=== PATIENT | male | born 1995 | race Caucasian/White ===

== ENCOUNTER 2020-06-26 21:45 | Emergency (ER) | payer SELFPAY ==
[~2020-06-26] VITALS: Ht 172.7 cm; Wt 62.8 kg
[2020-06-26] MEDS: KETOROLAC 15 MG/ML VIAL. IVP ONE (22:15)
[2020-06-26] MEDS: IV NORMAL SALINE 1,000ML 1,000 ML IV ONE (22:15)
--- NOTE | 2020-06-26 22:16 | PHYS DOC ---
Past History Past Medical History: No Pertinent History Additional Past Surgical Histo: [place] teeth extraction, hand surgery Additional Smoking Information: 1/2 pack/day x5-6 years Alcohol Use: Occasionally General Adult EDM: Chief Complaint: SHORTNESS OF BREATH HPI: HPI: Patient is a 25-year-old male coming in for fever, cough is nonproductive, right-sided chest pain and shortness of breath. Patient says he has been having upper respiratory tract symptoms and fevers for the past few days. Says he gets an upper respiratory infection around this time every year and has had yellow drainage and fevers with a T-max of 101. He was skateboarding for 5 days ago and fell mostly onto his right side which exacerbated the pain. Has abrasions to bilateral forearms has had rib fractures in the past and says he does not feel like his ribs are fractured. No vomiting or diarrhea. Initial observation patient is tachycardic in the 140s, states he drinks a lot of caffeine daily, states he tries to get adequate water intake. Denies any changes in urination or decreased urine. Patient later admitted to using IV morphine for pain after the fall. Has a history of IV drug use. Denies any family history of cancer. Review of Systems: Review of Systems: Constitutional: Fevers Eyes: Denies change in visual acuity HENT: Nasal congestion or rhinorrhea, no sore throat Respiratory: Cough and shortness of breath Cardiovascular: Denies chest pain or edema GI: Denies abdominal pain, nausea, vomiting, bloody stools or diarrhea : Denies dysuria Musculoskeletal: Denies back pain or joint pain Integument: Denies rash Neurologic: Denies headache, focal weakness or sensory changes Endocrine: Denies polyuria or polydipsia Lymphatic: Denies swollen glands Psychiatric: Denies depression or anxiety Current Medications: Current Meds: Current Medications Medications (Trade) Dose Ordered Sig/Melanie Start Time Stop Time Status Last Admin Dose Admin Ketorolac Tromethamine (Toradol 15mg Vial) 15 mg 1X ONCE 06/26/20 22:15 06/26/20 22:16 UNV Sodium Chloride 1,000 ml @ 1,000 mls/hr 1X ONCE 06/26/20 22:15 06/26/20 23:14 UNV Allergies: Allergies: Allergies Coded Allergies Type Severity Reaction Last Updated Verified No Known Drug Allergies 06/26/20 No Physical Exam: PE: Constitutional: Well developed, well nourished, no acute distress, non-toxic appearance. [] HENT: Normocephalic, atraumatic, bilateral external ears normal, oropharynx moist, no oral exudates, nose normal. [] Eyes: PERRLA, EOMI, conjunctiva normal, no discharge. [] Neck: Normal range of motion, no tenderness, supple, no stridor. [] Cardiovascular tachycardic, regular rhythm, no murmurs, chest wall tenderness Lungs & Thorax: Bilateral breath sounds clear to auscultation [] Abdomen: Bowel sounds normal, soft, no tenderness, no masses, no pulsatile masses. [] Skin: Warm, dry, no erythema, no rash. [] Back: No tenderness, no CVA tenderness. [] Extremities: No tenderness, no cyanosis, no clubbing, ROM intact, no edema. [] Neurologic: Alert and oriented X 3, normal motor function, normal sensory function, no focal deficits noted. [] Psychologic: Affect normal, judgement normal, mood normal. [] Current Patient Data: Vital Signs: Vital Signs Date Time Temp Pulse Resp B/P (MAP) Pulse Ox O2 Delivery O2 Flow Rate FiO2 06/26/20 22:02 100.3 147 18 100/62 (75) 97 Room Air EKG: EKG: Sinus tachycardia, borderline left axis deviation, heart rate 145, no ectopy, normal intervals, no ST elevation or depression. [] Radiology/Procedures: Radiology/Procedures: CT ANGIO CHEST W ABD PEL W/ Clinical Indication: Pain, dyspnea, fever COMPARISON: None TECHNIQUE: Multiple contiguous axial images were obtained throughout the chest, abdomen, and pelvis with the use of IV contrast. Axial images were reformatted into coronal and sagittal planes. MIP reconstructions were obtained 100 mL Isovue-370 was administered. One or more of the following dose reduction techniques were utilized: Automated exposure control (AEC), Adjustment of mA and/or kV according to patient size, Use of iterative reconstruction technique such as ASiR, CT scan done according to ALARA and image gently/image wisely. Findings: The thyroid is symmetric. Mediastinal and bilateral hilar lymphadenopathy. No evidence of pulmonary thromboembolic disease. The thoracic aorta diameter is normal. The cardiac size is normal. There is no pericardial effusion. The central airways are patent. Multifocal bilateral cavitary pulmonary nodules and masses, for example left apical cavitary mass measuring 3.1 cm (series 4 image 16). Bilateral lower lobe ground glass opacities . Small right and trace left pleural effusions. There is no pneumothorax. Markedly enlarged spleen measures 20.5 cm craniocaudad. The liver, gallbladder, pancreas, and adrenal glands are unremarkable. The kidneys are unremarkable. There is no significant mesenteric or retroperitoneal adenopathy identified. There is no evidence of free intraperitoneal fluid or pneumoperitoneum. Visualized portions of the bowel are grossly unremarkable. Bladder is unremarkable. There is no significant pelvic ascites. No significant iliac or inguinal adenopathy is identified. No acute osseous abnormality. IMPRESSION: 1. Multifocal bilateral pulmonary nodules and masses, some of which demonstrate cavitation. Bilateral lower lobe groundglass opacities and consolidations. Differential considerations would include septic emboli, necrotizing infection including atypical/fungal infections such as tuberculosis or histoplasmosis, autoimmune/vasculitis such as granulomatosis with polyangiitis, sarcoidosis, and cavitary metastases. If the patient is immunocompromised, opportunistic infection should also be considered. 2. Mediastinal and bilateral hilar lymphadenopathy. No abdominal lymphadenopathy. 3. Marked splenomegaly. Exam: Chest one view INDICATION: Injury from fall on right side TECHNIQUE: Frontal view of the chest Comparisons: None FINDINGS: The cardiomediastinal silhouette and pulmonary vessels are within normal limits. Patchy airspace disease at the right lateral lung base. No pleural effusion. IMPRESSION: Patchy bibasilar airspace disease greater at the right lateral lung. Recommend CT for further evaluation. [] Heart Score: Risk Factors: Risk Factors: DM, Current or recent (<one month) smoker, HTN, HLP, family history of CAD, obesity. Risk Scores: Score 0 - 3: 2.5% MACE over next 6 weeks - Discharge Home Score 4 - 6: 20.3% MACE over next 6 weeks - Admit for Clinical Observation Score 7 - 10: 72.7% MACE over next 6 weeks - Early Invasive Strategies Course & Med Decision Making: Course & Med Decision Making Pertinent Labs and Imaging studies reviewed. (See chart for details) Discussed with radiologist, likely infectious etiology, less likely malignancy. Patient meeting criteria for sepsis, borderline blood pressures but reduced to 80s over 40s but responded well to fluids. Judicious fluid resuscitation due to not wanting to overcorrect sodium too quickly. Patient denies any history of cancer in himself or family, only IV drug use. Given broad-spectrum antibiotics to cover pulmonary infection such as azithromycin, vancomycin, Zosyn. Transfer to [facility], discussed with Dr. Pedraza overnight due to acuity of patient's condition. Concern for DIC due to patient's elevated dimer, low platelets, low hemoglobin. Fibrinogen lab pending at time of transfer. [] Dragon Disclaimer: Dragon Disclaimer: This electronic medical record was generated, in whole or in part, using a voice recognition dictation system. Departure Departure: Impression: Primary Impression: Severe sepsis Disposition: 02 DC/TRF OTHER SHORT TERM HOS Condition: CRITICAL Critical Care Note Total Time (mins): 90 Comments Critical care time attributed to assessing patient, discussing with consultants, reviewing lab work and radiology, ordering further studies, looking to transfer patient separate from other billable procedures. KORIN COLLINS MD Jun 26, 2020 22:16
[2020-06-26 22:58] LABS: BASO # 0.1 x10^3/uL (0.0-0.2); BASO % 1 % (0-3); EOS % 0 % (0-3); HEMATOCRIT 31.1 % (39.0-53.0); HEMOGLOBIN 10.3 g/dL (13.0-17.5); LYMPH # 0.6 x10^3/uL (1.0-4.8); LYMPH % 4 % (24-48); MEAN CORPUSCULAR HEMOGLOBIN 25 pg (25-35); MEAN CORPUSCULAR HGB CONC 33 g/dL (31-37); MEAN CORPUSCULAR VOLUME 77 fL (79-100); MONO # 0.4 x10^3/uL (0.0-1.1); MONO % 3 % (0-9); NEUT # 13.4 x10^3uL (1.8-7.7); NEUT % 92 % (31-73); PLATELET COUNT 67 x10^3/uL (140-400); RED BLOOD COUNT 4.05 x10^6/uL (4.30-5.70); RED CELL DISTRIBUTION WIDTH 17.8 % (11.5-14.5); WHITE BLOOD COUNT 14.6 x10^3/uL (4.0-11.0)
[2020-06-26 23:13] LABS: ALBUMIN 1.8 g/dL (3.4-5.0); ALBUMIN/GLOBULIN RATIO 0.3 (1.0-1.7); CALCIUM 7.9 mg/dL (8.5-10.1); CREATININE 1.3 mg/dL (0.7-1.3); GFR 67.3; POTASSIUM 3.8 mmol/L (3.5-5.1); TOTAL PROTEIN 7.6 g/dL (6.4-8.2)
[2020-06-26] MEDS ORDERED: CONTRAST GIVEN. MC PRN (23:15)
[2020-06-26 23:16] LABS: % BANDS 14 % (0-9); % LYMPHS 6 % (24-48); % MONOS 2 % (0-10); % SEGS 78 % (35-66)
[2020-06-26 23:17] LABS: ANISOCYTOSIS SLIGHT; MICROCYTOSIS SLIGHT; PLT ESTIMATE DECREASED (ADEQUATE)
[2020-06-26] MEDS: IOHEXOL 350 MG/ML 100 ML VIAL. IV ONE (23:27)
--- NOTE | 2020-06-26 23:28 | EKG ---
[address] [address] Test Date: 2020-06-26 Test Time: 22:03:31 Pat Name: ANSELMO EUBANKS Department: Room: Gender: M Clinical Nursing Professor: : 1995 Requested By: KORIN COLLINS Order Number: [id number] Reading MD: Measurements Intervals [place] Rate: 145 P: 34 ID: [id number] QRS: -9 QRSD: 94 T: 56 QT: 274 QTc: 428 Interpretive Statements SINUS TACHYCARDIA LEFTWARD AXIS OTHERWISE NORMAL ECG RI6.02 No previous ECG available for comparison
[2020-06-26] MEDS: IV RINGERS SOLUTION,LACTATED 1,000 ML IV ONE (23:50)
--- NOTE | 2020-06-27 00:24 | RAD ---
CT ANGIO CHEST W ABD PEL W/ Clinical Indication: Pain, dyspnea, fever COMPARISON: None TECHNIQUE: Multiple contiguous axial images were obtained throughout the chest, abdomen, and pelvis with the use of IV contrast. Axial images were reformatted into coronal and sagittal planes. MIP reconstructions were obtained 100 mL Isovue-370 was administered. One or more of the following dose reduction techniques were utilized: Automated exposure control (AEC), Adjustment of mA and/or kV according to patient size, Use of iterative reconstruction technique such as ASiR, CT scan done according to ALARA and image gently/image wisely. Findings: The thyroid is symmetric. Mediastinal and bilateral hilar lymphadenopathy. No evidence of pulmonary thromboembolic disease. The thoracic aorta diameter is normal. The cardiac size is normal. There is no pericardial effusion. The central airways are patent. Multifocal bilateral cavitary pulmonary nodules and masses, for example left apical cavitary mass measuring 3.1 cm (series 4 image 16). Bilateral lower lobe ground glass opacities . Small right and trace left pleural effusions. There is no pneumothorax. Markedly enlarged spleen measures 20.5 cm craniocaudad. The liver, gallbladder, pancreas, and adrenal glands are unremarkable. The kidneys are unremarkable. There is no significant mesenteric or retroperitoneal adenopathy identified. There is no evidence of free intraperitoneal fluid or pneumoperitoneum. Visualized portions of the bowel are grossly unremarkable. Bladder is unremarkable. There is no significant pelvic ascites. No significant iliac or inguinal adenopathy is identified. No acute osseous abnormality. IMPRESSION: 1. Multifocal bilateral pulmonary nodules and masses, some of which demonstrate cavitation. Bilateral lower lobe groundglass opacities and consolidations. Differential considerations would include septic emboli, necrotizing infection including atypical/fungal infections such as tuberculosis or histoplasmosis, autoimmune/vasculitis such as granulomatosis with polyangiitis, sarcoidosis, and cavitary metastases. If the patient is immunocompromised, opportunistic infection should also be considered. 2. Mediastinal and bilateral hilar lymphadenopathy. No abdominal lymphadenopathy. 3. Marked splenomegaly. FOR INTERNAL CODING PURPOSES Critical result: Findings discussed with KORIN COLLINS at 06/27/2020 12:05 AM. RESULT CODE: (C) Electronically signed by: Rick Nuñez MD (06/27/2020 12:21 AM) [facility]
[2020-06-27] MEDS ORDERED: IV NORMAL SALINE 500ML 500 ML ONE ×2 (00:47→01:03)
[2020-06-27] MEDS ORDERED: IV NORMAL SALINE 250ML 250 ML ONE (01:02)
[2020-06-27] MEDS ORDERED: VANCOMYCIN 1 GM VIAL. ONE (01:03)
[2020-06-27] MEDS ORDERED: PIPERACILLIN/TAZOBACTAM 3.375 GM VIAL IV ONE (01:03)
[2020-06-27] MEDS ORDERED: AZITHROMYCIN 500 MG VIAL. IV ONE (01:03)
[2020-06-27] MEDS ORDERED: IV NORMAL SALINE 50ML 50 ML ONE (01:03)
[2020-06-27] MEDS: IV NORMAL SALINE 1,000ML 1,000 ML IV ONE ×2 (01:15→03:15)
[2020-06-27] MEDS: PIPERACILLIN/TAZOBACTAM 3.375 GM in IV NORMAL SALINE 50ML 50 ML IV ONE (01:27)
[2020-06-27] MEDS: VANCOMYCIN 1.5 GM in IV NORMAL SALINE 500ML 500 ML IV ONE (01:33)
[2020-06-27] MEDS: AZITHROMYCIN 500 MG in IV NORMAL SALINE 250ML 250 ML IV ONE (01:33)
[2020-06-27 01:34] VITALS: BP 89/46
[2020-06-27] MEDS ORDERED: IV NORMAL SALINE 1,000ML 1,000 ML IV ONE (03:00)
[2020-06-27 03:25] LABS: BASO % 0 % (0-3); EOS # 0.1 x10^3/uL (0.0-0.7); EOS % 1 % (0-3); HEMATOCRIT 24.7 % (39.0-53.0); HEMOGLOBIN 8.1 g/dL (13.0-17.5); LYMPH # 0.4 x10^3/uL (1.0-4.8); LYMPH % 6 % (24-48); MEAN CORPUSCULAR HEMOGLOBIN 26 pg (25-35); MEAN CORPUSCULAR HGB CONC 33 g/dL (31-37); MEAN CORPUSCULAR VOLUME 78 fL (79-100); MONO # 0.4 x10^3/uL (0.0-1.1); MONO % 5 % (0-9); NEUT # 6.2 x10^3uL (1.8-7.7); NEUT % 87 % (31-73); PLATELET COUNT 45 x10^3/uL (140-400); RED BLOOD COUNT 3.18 x10^6/uL (4.30-5.70); WHITE BLOOD COUNT 7.1 x10^3/uL (4.0-11.0)
[2020-06-27 03:34] LABS: BILIRUBIN,URINE SMALL (NEG); CLARITY,URINE CLEAR; COLOR,URINE YELLOW; GLUCOSE,URINE NEG (NEG)
[2020-06-27 03:35] LABS: BACTERIA,URINE 0 /HPF (0-FEW); NITRITE,URINE NEG (NEG); RBC,URINE 0 /HPF (0-2); SQUAMOUS EPITHELIAL CELL,UR OCC /LPF
[2020-06-27 03:40] LABS: ALBUMIN 1.3 g/dL (3.4-5.0); ALBUMIN/GLOBULIN RATIO 0.3 (1.0-1.7); CALCIUM 6.6 mg/dL (8.5-10.1); POTASSIUM 3.6 mmol/L (3.5-5.1); TOTAL BILIRUBIN 2.7 mg/dL (0.2-1.0); TOTAL PROTEIN 5.3 g/dL (6.4-8.2)
== END 2020-06-27 03:47 | disposition short-term general hospital (02) ==
LOC: ER 21:45
DX: R07.89 Other chest pain (principal); R65.20 Severe sepsis without septic shock; F17.200 Nicotine dependence, unspecified, uncomplicated
CPT/HCPCS: 36415; 71045; 71275; 74177; 80053; 81001; 83605; 83690; 83930; 84484; 85007; 85025; 85379; 85610; 86703; 87040; 87205; 93005; 96361; 96365; 96366; 96372; 96375; 96376; 99291; 99292; J0456; J1885; J2543; J3010; J3370; J7030; J7040; J7050; J7120; Q9967

== ENCOUNTER 2020-07-07 13:03 | Emergency (ER) | payer BC ==
[~2020-07-07] VITALS: Ht 172.7 cm; Wt 59.1 kg
[2020-07-07] MEDS ORDERED: KETOROLAC 30 MG/ML VIAL. IVP ONE (13:45)
[2020-07-07] MEDS ORDERED: DAPTOmycin 350 MG in IV NORMAL SALINE 50ML 50 ML IV SCH (14:00)
[2020-07-07] MEDS ORDERED: IV NORMAL SALINE 1,000ML 1,000 ML IV ONE ×2 (14:00)
--- NOTE | 2020-07-07 14:27 | RAD ---
EXAM: XR CHEST 1V 07/07/2020 2:04 PM CLINICAL INDICATION: Shortness of breath, endocarditis. COMPARISON: Chest radiograph 06/26/[address] chest 06/26/2020 TECHNIQUE: AP view of the chest FINDINGS: The heart is mostly obscured. There are worsened bilateral opacities and an increased, mod erate left and small right pleural effusion. No pneumothorax. No acute osseous abnormality. IMPRESSION: Worsening bilateral airspace disease and pleural effusions. Electronically signed by: Abi Lopez MD (07/07/2020 2:25 PM) [id number]
[2020-07-07 14:29] LABS: BASO % 0 % (0-3); EOS % 0 % (0-3); HEMATOCRIT 27.6 % (39.0-53.0); HEMOGLOBIN 8.6 g/dL (13.0-17.5); LYMPH % 11 % (24-48); MEAN CORPUSCULAR HEMOGLOBIN 26 pg (25-35); MEAN CORPUSCULAR HGB CONC 31 g/dL (31-37); MEAN CORPUSCULAR VOLUME 82 fL (79-100); MONO # 0.4 x10^3/uL (0.0-1.1); MONO % 5 % (0-9); NEUT # 7.4 x10^3uL (1.8-7.7); NEUT % 83 % (31-73); PLATELET COUNT 228 x10^3/uL (140-400); RED BLOOD COUNT 3.35 x10^6/uL (4.30-5.70); RED CELL DISTRIBUTION WIDTH 20.4 % (11.5-14.5); WHITE BLOOD COUNT 8.9 x10^3/uL (4.0-11.0)
[2020-07-07 14:37] LABS: CALCIUM 8.2 mg/dL (8.5-10.1); CREATININE 0.6 mg/dL (0.7-1.3); GFR 164.2; POTASSIUM 4.2 mmol/L (3.5-5.1)
[2020-07-07 14:41] LABS: LACTATE DEHYDROGENASE 265 U/L (85-227); LIPASE 49 U/L (73-393)
[2020-07-07] MEDS ORDERED: MORPHINE SULFATE 4 MG/ML DISP.SYRIN. ONE (14:43)
[2020-07-07] MEDS ORDERED: MORPHINE SULFATE 4 MG/ML DISP.SYRIN. IV ONE (14:45)
[2020-07-07 14:53] LABS: ALBUMIN 1.4 g/dL (3.4-5.0); ALBUMIN/GLOBULIN RATIO 0.2 (1.0-1.7); TOTAL BILIRUBIN 0.9 mg/dL (0.2-1.0); TOTAL PROTEIN 7.7 g/dL (6.4-8.2)
--- NOTE | 2020-07-07 15:07 | PHYS DOC ---
Past History Past Medical History: Other Additional Past Medical Histor: DRUG ABUSE - INTRAVENOUS AND ORALLY Past Surgical History: Other Additional Past Surgical Histo: [place] teeth extraction, hand surgery Alcohol Use: Occasionally Adult General Chief Complaint Chief Complaint: MULTIPLE COMPLAINTS HPI HPI Patient is a 25-year-old male presents to the emergency department stating he went to the infusion clinic here at [facility] for his daptomycin infusion for treatment for recently diagnosed endocarditis. Patient states the clinic refused his entry related to his high fever of 101.6 and recommended he come straight to the emergency department for an evaluation for Covid symptoms. Patient did state that he was here on 26 June and was treated and transferred to [facility] related to IV drug use and problems with his lungs and heart. Patient states that while he does not really feel any better as far as his pain, he states that his breathing is somewhat better however continues to have shortness of breath. 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 Patient states he has used oxycodone and OxyContin crushed up and ingested both intravenously, starting, and oral ingestion. Patient states his last IV use of heroin was on 06/26/2020, patient states he has not used any illicit IV ingestion since his admission to the hospital on 06/26/2020. Patient states that he recently started appointments at the drug rehab clinic starting yesterday and took his first Subutex both yesterday and today, patient also states he crushed up and ingested oxycodone as well as some morphine this morning. Patient denies any symptoms of the COVID-19 virus, patient states his only complaints are shortness of breath with body aches all over. Patient does deny any recent fever or chills. Patient denies chest pain, nausea, vomiting, diarrhea, abdominal pains, chest palpitations. Patient does state that his right lower arm and hand along with both feet have been swelling lately. Review of Systems Review of Systems 14 body systems of review of systems have been reviewed. See HPI for pertinent positives and negative responses, otherwise all other systems are negative, nonpertinent or noncontributory. Current Medications Current Medications Current Medications Medications (Trade) Dose Ordered Sig/Melanie Start Time Stop Time Status Last Admin Dose Admin Daptomycin 350 mg/ Sodium Chloride 50 ml @ 100 mls/hr Q24H 07/07/20 14:00 07/07/20 14:46 100 MLS/HR Ketorolac Tromethamine (Toradol 30mg Vial) 30 mg 1X ONCE 07/07/20 13:45 07/07/20 13:48 DC 07/07/20 14:06 30 MG Morphine Sulfate (Morphine 4mg Syringe) 4 mg STK-MED ONCE 07/07/20 14:43 07/07/20 14:43 DC Sodium Chloride 1,000 ml @ 1,000 mls/hr 1X ONCE 07/07/20 14:00 07/07/20 14:59 07/07/20 14:06 1,000 MLS/HR Allergies Allergies Allergies Coded Allergies Type Severity Reaction Last Updated Verified No Known Drug Allergies 06/26/20 No Physical Exam Physical Exam Constitutional: Well developed, malnourished nourished, no acute distress, non- toxic appearance. HENT: Normocephalic, atraumatic, bilateral external ears normal, oropharynx moist, no oral exudates, nose normal. Eyes: PERRLA, EOMI, conjunctiva normal, no discharge. Pupils 3 mm Neck: Normal range of motion, no tenderness, supple, no stridor. Positive JVD Cardiovascular:Heart rate regular rhythm, heart rate tachycardic, no murmur appreciated Lungs & Thorax: Bilateral breath sounds diminished throughout all lung [place] patient tachypneic, hypoxic during physical exam with room air sat of 88, placed on 2 L per nasal cannula with O2 sat increasing to 96% without a decrease in tachypnea Abdomen: Bowel sounds normal, soft, no tenderness, no masses, no pulsatile masses. Skin: Warm, dry, no erythema, no rash. Patient has several foam bandages placed by [facility] wound care, bandages not removed related to current treatment in progress. Back: No CVA tenderness, however patient does complain of tenderness to palpation across posterior trunk surfaces. No crepitus noted no deformities noted no subcu air. Extremities: No tenderness, no cyanosis, no clubbing, ROM intact, no edema. Pain to passive range of motion all extremities, however no crepitus, deformities, or swelling of the joints noted. Neurologic: Alert and oriented X 3, normal motor function, normal sensory function, no focal deficits noted. Psychologic: Affect normal, judgement normal, mood normal. Current Patient Data Vital Signs Vital Signs Date Time Temp Pulse Resp B/P (MAP) Pulse Ox O2 Delivery O2 Flow Rate FiO2 07/07/20 14:15 97.6 151 36 151/100 (117) 89 Lab Results Laboratory Tests Test 07/07/20 14:03 White Blood Count 8.9 x10^3/uL Red Blood Count 3.35 x10^6/uL Hemoglobin 8.6 g/dL Hematocrit 27.6 % Mean Corpuscular Volume 82 fL Mean Corpuscular Hemoglobin 26 pg Mean Corpuscular Hemoglobin Concent 31 g/dL Red Cell Distribution Width 20.4 % Platelet Count 228 x10^3/uL Neutrophils (%) (Auto) 83 % Lymphocytes (%) (Auto) 11 % Monocytes (%) (Auto) 5 % Eosinophils (%) (Auto) 0 % Basophils (%) (Auto) 0 % Neutrophils # (Auto) 7.4 x10^3uL Lymphocytes # (Auto) 1.0 x10^3/uL Monocytes # (Auto) 0.4 x10^3/uL Eosinophils # (Auto) 0.0 x10^3/uL Basophils # (Auto) 0.0 x10^3/uL Sodium Level 136 mmol/L Potassium Level 4.2 mmol/L Chloride Level 102 mmol/L Carbon Dioxide Level 26 mmol/L Anion Gap 8 Blood Urea Nitrogen 5 mg/dL Creatinine 0.6 mg/dL Estimated GFR (Cockcroft-Gault) 164.2 BUN/Creatinine Ratio 8 Glucose Level 120 mg/dL Lactic Acid Level 1.3 mmol/L Calcium Level 8.2 mg/dL Magnesium Level 2.0 mg/dL Total Bilirubin 0.9 mg/dL Aspartate Amino Transf (AST/SGOT) 65 U/L Alanine Aminotransferase (ALT/SGPT) 42 U/L Alkaline Phosphatase 226 U/L Lactate Dehydrogenase 265 U/L Creatine Kinase 40 U/L Creatine Kinase MB (Mass) 0.5 ng/mL Creatine Kinase MB Relative Index 1.3 % Troponin I Quantitative < 0.017 ng/mL Total Protein 7.7 g/dL Albumin 1.4 g/dL Albumin/Globulin Ratio 0.2 Lipase 49 U/L Current Medications Medications (Trade) Dose Ordered Sig/Melanie Route PRN Reason Start Time Stop Time Status Last Admin Dose Admin Ketorolac Tromethamine (Toradol 30mg Vial) 30 mg 1X ONCE IVP 07/07/20 13:45 07/07/20 13:48 DC 07/07/20 14:06 Daptomycin 350 mg/ Sodium Chloride 50 ml @ 100 mls/hr Q24H IV 07/07/20 14:00 07/07/20 14:46 Sodium Chloride 1,000 ml @ 1,000 mls/hr 1X ONCE IV 07/07/20 14:00 07/07/20 14:59 DC 07/07/20 14:06 Sodium Chloride 1,000 ml @ 1,000 mls/hr 1X ONCE IV 07/07/20 14:00 07/07/20 14:59 DC 07/07/20 14:06 Morphine Sulfate (Morphine 4mg Syringe) 4 mg 1X ONCE IV 07/07/20 14:45 07/07/20 14:46 DC 07/07/20 14:45 Morphine Sulfate (Morphine 4mg Syringe) 4 mg STK-MED ONCE .ROUTE 07/07/20 14:43 07/07/20 14:43 DC Fentanyl Citrate (Fentanyl 2ml Vial) 75 mcg 1X ONCE IVP 07/07/20 15:30 07/07/20 15:32 DC 07/07/20 15:30 Piperacillin Sod/ Tazobactam Sod 4.5 gm/Sodium Chloride 50 ml @ 100 mls/hr 1X ONCE IV 07/07/20 15:45 07/07/20 16:14 DC Vancomycin HCl 1.5 gm/Sodium Chloride 500 ml @ 250 mls/hr 1X ONCE IV 07/07/20 15:45 07/07/20 17:44 Laboratory Tests Test 07/07/20 14:03 White Blood Count 8.9 x10^3/uL (4.0-11.0) Red Blood Count 3.35 x10^6/uL (4.30-5.70) L Hemoglobin 8.6 g/dL (13.0-17.5) L Hematocrit 27.6 % (39.0-53.0) L Mean Corpuscular Volume 82 fL (79-100) Mean Corpuscular Hemoglobin 26 pg (25-35) Mean Corpuscular Hemoglobin Concent 31 g/dL (31-37) Red Cell Distribution Width 20.4 % (11.5-14.5) H Platelet Count 228 x10^3/uL (140-400) Neutrophils (%) (Auto) 83 % (31-73) H Lymphocytes (%) (Auto) 11 % (24-48) L Monocytes (%) (Auto) 5 % (0-9) Eosinophils (%) (Auto) 0 % (0-3) Basophils (%) (Auto) 0 % (0-3) Neutrophils # (Auto) 7.4 x10^3uL (1.8-7.7) Lymphocytes # (Auto) 1.0 x10^3/uL (1.0-4.8) Monocytes # (Auto) 0.4 x10^3/uL (0.0-1.1) Eosinophils # (Auto) 0.0 x10^3/uL (0.0-0.7) Basophils # (Auto) 0.0 x10^3/uL (0.0-0.2) Sodium Level 136 mmol/L (136-145) Potassium Level 4.2 mmol/L (3.5-5.1) Chloride Level 102 mmol/L (98-107) Carbon Dioxide Level 26 mmol/L (21-32) Anion Gap 8 (6-14) Blood Urea Nitrogen 5 mg/dL (8-26) L Creatinine 0.6 mg/dL (0.7-1.3) L Estimated GFR (Cockcroft-Gault) 164.2 BUN/Creatinine Ratio 8 (6-20) Glucose Level 120 mg/dL (70-99) H Calcium Level 8.2 mg/dL (8.5-10.1) L Magnesium Level Pending Total Bilirubin Pending Aspartate Amino Transferase (AST) Pending Alanine Aminotransferase (ALT) Pending Alkaline Phosphatase Pending Creatine Kinase Pending Creatine Kinase MB (Mass) Pending Creatine Kinase MB Relative Index Pending Total Protein Pending Albumin Pending Albumin/Globulin Ratio Pending EKG EKG EKG performed at 1318 by house respiratory therapist, heart rate is 139 showing sinus tachycardia without ectopy, [place] interval 0.112, QTc interval 0.422, no acute STEMI, no ACS, no acute ischemia noted, EKG interpreted by ED attending Dr. Santos Radiology/Procedures Radiology/Procedures STATUS: REG ER ORD. PHYSICIAN: MAVERICK BENJAMIN APRN REASON: SHORT OF BREATH WITH RECENT HX ENDOCARDITIS PROCEDURE: CHEST AP ONLY EXAM: XR CHEST 1V 07/07/2020 2:04 PM CLINICAL INDICATION: Shortness of breath, endocarditis. COMPARISON: Chest radiograph 06/26/[address] chest 06/26/2020 TECHNIQUE: AP view of the chest FINDINGS: The heart is mostly obscured. There are worsened bilateral opacities and an increased, moderate left and small right pleural effusion. No pneumothorax. No acute osseous abnormality. IMPRESSION: Worsening bilateral airspace disease and pleural effusions. Electronically signed by: Abi Lopez MD (07/07/2020 2:25 PM) [id number] DICTATED AND SIGNED BY: ABI LOPEZ MD DATE: 07/07/20 1423 CC: MAVERICK BENJAMIN APRN; PCP,NO; JAQUAN SANTOS DO ~MTH0 0 Heart Score HEART Score for Chest Pain: HEART Score for Chest Pain Response (Comments) Value History Moderately Suspicious 1 ECG Normal 0 Risk Factors >3 Risk Factors or Hx CAD 2 Troponin < Normal Limit 0 Total 3 Risk Factors: Risk Factors: DM, Current or recent (<one month) smoker, HTN, HLP, family history of CAD, obesity. Risk Scores: Risk Factors: DM, Current or recent (<one month) smoker, HTN, HLP, family history of CAD, obesity. Course & Med Decision Making Course & Med Decision Making Pertinent Labs and Imaging studies reviewed. (See chart for details) 25-year-old male presented to emergency department today after being sent here from [facility] infusion clinic related to a temperature of 101.6. He was scheduled to have his first daptomycin infusion for his diagnosis of endocarditis. Patient's presentation revealed a nontoxic however the patient appeared pale, had jugular vein distention, and malnourished in appearance. The patient was hypoxic upon arrival to the room satting 88% in which ED nursing placed 2 L per nasal cannula which brought up his oxygen saturation to 96%. Patient was tachypneic with respiratory rate at 38, patient states that his respiratory rate is actually better than it had been over the past few weeks. A work-up was initiated in the emergency department, imaging and labs pending. An EKG was completed and interpreted by ED attending Dr. Santos, no STEMI, no ACS, no ischemia noted. Patient's chest x-ray interpreted by house radiologist showed worsening pulmonary disease. Patient's daptomycin infusion was started in the ER, related to the patient's diagnosis of sepsis and bilateral pleural effusion, high-dose 25 mg/kg vancomycin was initiated along with 4.5 mg of Zosyn. Discussed case with [facility] inpatient Dr. Winkler who agreed to take the patient under admission to the CVC unit for diagnosis of hypoxia, sepsis, pneumonia with bilateral pleural effusion. Awaiting bed assignment at [facility], patient will be transported from this ER to [facility] via EMS. Diagnosis sepsis, hypoxia, pneumonia, bilateral pleural effusions, hypoalbuminemia, most likely heart failure versus parapneumonic effusion related to physical examination. Dragon Disclaimer Dragon Disclaimer This electronic medical record was generated, in whole or in part, using a voice recognition dictation system. Departure Departure: Impression: Primary Impression: Hypoxia Additional Impressions: Sepsis Pneumonia Pleural effusion Hypoalbuminemia Heart failure Parapneumonic effusion IV drug abuse Drug abuse and dependence Disposition: 05 DC/TRF OTHER TYPE INSTITUTI Admitting Physician: Other (DR. WINKLER AT [facility]VC UNIT) Condition: GUARDED Referrals: PCP,NO (PCP) Problem Qualifiers Additional Impressions: Sepsis Sepsis type: sepsis due to unspecified organism Sepsis acute organ dysfunction status: with acute organ dysfunction Severe sepsis acute organ dysfunction type: acute respiratory failure Acute respiratory failure type: with hypoxia Severe sepsis shock status: without septic shock Qualified Codes: A41.9 - Sepsis, unspecified organism; R65.20 - Severe sepsis without septic shock; J96.01 - Acute respiratory failure with hypoxia Pneumonia Pneumonia type: due to unspecified organism Laterality: bilateral Lung location: unspecified part of lung Qualified Codes: J18.9 - Pneumonia, unspecified organism Heart failure Heart failure type: unspecified Heart failure chronicity: unspecified Qualified Codes: I50.9 - Heart failure, unspecified MAVERICK BENJAMIN ROD TAPE OPERATOR Jul 07, 2020 15:07
[2020-07-07] MEDS ORDERED: VANCOMYCIN 1.5 GM in IV NORMAL SALINE 500ML 500 ML IV ONE (15:45)
[2020-07-07] MEDS ORDERED: PIPERACILLIN/TAZOBACTAM 4.5 GM in IV NORMAL SALINE 50ML 50 ML IV ONE (15:45)
--- NOTE | 2020-07-07 16:00 | EKG ---
[facility] ED [facility] [address] [place] [id number] Test Date: 2020-07-07 Test Time: 13:18:20 Pat Name: ANSELMO EUBANKS Department: Room: Gender: M Integrity Assessor: : 1995 Requested By: JAQUAN SANTOS Order Number: [id number] Reading MD: Measurements Intervals [place] Rate: 139 P: 66 SC: 112 QRS: -50 QRSD: 72 T: 38 QT: 274 QTc: 422 Interpretive Statements SINUS TACHYCARDIA LEFT ATRIAL ABNORMALITY S1,S2,S3 PATTERN ABNORMAL ECG RI6.02 No previous ECG available for comparison
[2020-07-07] MEDS ORDERED: IV NORMAL SALINE 50ML 50 ML ONE (16:54)
[2020-07-07] MEDS ORDERED: PIPERACILLIN/TAZOBACTAM 4.5 GM VIAL IV ONE (16:55)
[2020-07-07] MEDS ORDERED: ACETAMINOPHEN 500 MG TABLET PO ONE (17:15)
[2020-07-07] MEDS ORDERED: NICOTINE 21MG PATCH. TD ONE (19:15)
[2020-07-07 19:28] VITALS: BP 136/94
== END 2020-07-07 19:45 | disposition short-term general hospital (02) ==
LOC: ER 13:03
DX: A41.9 Sepsis, unspecified organism (principal); R65.20 Severe sepsis without septic shock; J96.01 Acute respiratory failure with hypoxia; J18.9 Pneumonia, unspecified organism; J90 Pleural effusion, not elsewhere classified; E88.09 Other disorders of plasma-protein metabolism, not elsewhere classified; F19.20 Other psychoactive substance dependence, uncomplicated; I50.9 Heart failure, unspecified; Z20.828 Contact with and (suspected) exposure to other viral communicable diseases
CPT/HCPCS: 36415; 71045; 80053; 82553; 83605; 83615; 83690; 83735; 83880; 84484; 85025; 87040; 93005; 96361; 96365; 96366; 96368; 96375; 99285; C9803; J0878; J1885; J2270; J2543; J3010; J3370; J7030; J7040; U0003